=== PATIENT | male | born 1980 | race Two or more races ===

== ENCOUNTER 2020-08-24 22:48 | Emergency (ER) | payer BC, OTHER ==
[~2020-08-24] VITALS: Ht 175.3 cm; Wt 99.8 kg
[2020-08-24] MEDS ORDERED: ONDANSETRON HCL/PF 4 MG/2 ML VIAL IVP ONE (23:30)
[2020-08-24] MEDS ORDERED: IV NS 0.9% 1,000 ML BAG IV ONE (23:30)
[2020-08-24] MEDS ORDERED: PANTOPRAZOLE 40 MG VIAL IV ONE (23:30)
[2020-08-24] MEDS ORDERED: PANTOPRAZOLE 40 MG VIAL ONE (23:33)
[2020-08-24] MEDS ORDERED: ONDANSETRON HCL/PF 4 MG/2 ML VIAL ONE (23:33)
[2020-08-24 23:47] LABS: BASOPHILS # (AUTO) 0.1 /CMM (0.0-0.2); BASOPHILS % (AUTO) 0.7 % (0.0-2.0); EOSINOPHILS % (AUTO) 1.5 % (0.0-6.0); HEMATOCRIT 43 % (39-51); HEMOGLOBIN 14.4 g/dL (13.5-17.5); LYMPHOCYTES # (AUTO) 2.6 /CMM (0.8-4.8); LYMPHOCYTES % (AUTO) 25.6 % (20.0-44.0); MEAN CORPUSCULAR HGB CONC 33 g/dl (31.0-36.0); MEAN CORPUSCULAR VOLUME 95 fL (80-96); MONOCYTES # (AUTO) 0.9 /CMM (0.1-1.30); MONOCYTES % (AUTO) 8.8 % (2.0-12.0); NEUTROPHILS # (AUTO) 6.5 /CMM (1.8-8.9); NEUTROPHILS % (AUTO) 63.4 % (43.0-81.0); PLATELET COUNT (AUTO) 225 /CMM (150-450); RED BLOOD CELL COUNT(AUTO) 4.52 MIL/uL (4.5-6.0); WHITE BLOOD COUNT (AUTO) 10.2 K/uL (4.3-11.0)
--- NOTE | 2020-08-24 23:50 | NUR ---
PRESENTED TO THE ER FOR C/O GENERALIZED ABD PAIN AND AN EPISODE OF VOMITING BLOOD . PT AMBULATORY TO BED 7 ER WAS PLACED ON A MONITOR ,. VSS. WILL CONT TO MONITOR ,
[2020-08-25 00:01] LABS: CALCIUM, SERUM 9.3 mg/dL (8.5-10.1); CREATININE 0.8 mg/dL (0.6-1.3); POTASSIUM 3.6 mmol/L (3.5-5.1)
[2020-08-25 00:08] LABS: ALBUMIN 3.7 g/dL (3.4-5.0); BILIRUBIN,DIRECT 0.1 mg/dL (0.0-0.2); BILIRUBIN,TOTAL 0.2 mg/dL (0.2-1.0)
[2020-08-25] MEDS ORDERED: ONDA4TAB11 PO (02:13)
[2020-08-25] MEDS ORDERED: PANT40TA2 PO (02:13)
--- NOTE | 2020-08-25 02:27 | NUR ---
PT IS MEDICALLY STABLE FOR D/C. IV removed. Catheter intact and site benign. Pressure and 4x4 applied to site. No bleeding noted.Patient discharged to home in stable condition. rx and Written and verbal after care instructions given. Patient verbalizes understanding of instruction.
[2020-08-25 02:28] VITALS: BP 155/87
== END 2020-08-25 02:30 | disposition home or self-care (01) ==
LOC: ER 22:51
DX: K29.70 Gastritis, unspecified, without bleeding (principal); Z88.0 Allergy status to penicillin; Z79.899 Other long term (current) drug therapy
CPT/HCPCS: 36415 ×2; 71045; 80048; 80076; 83690; 85025; 85730; 86850; 96361; 96374; 96375; 99284; C9113; J2405; J7030